=== PATIENT | male | born 1955 | race Two or more races ===

== ENCOUNTER 2023-04-14 15:38 | Outpatient (CLI) | payer OTHER | END 2023-04-14 15:48 | disposition home or self-care (01) | LOC: LAB 15:38 | PROVIDERS: ATTEND Urology | DX: R97.20 Elevated prostate specific antigen [PSA] (principal) ==

== ENCOUNTER 2023-04-28 07:03 | Outpatient (CLI) | payer OTHER | END 2023-04-28 07:12 | disposition home or self-care (01) | LOC: SONOGRAMA 07:03 | PROVIDERS: ATTEND Urology | DX: N41.1 Chronic prostatitis (principal); D29.1 Benign neoplasm of prostate ==